=== PATIENT | male | born 1975 | race Caucasian/White ===

== ENCOUNTER 2020-11-28 13:56 | Emergency (ER) | payer OTHER ==
[~2020-11-28] VITALS: Ht 167.6 cm; Wt 72.6 kg
[~2020-11-28 13:56] MED LIST: ALPHA LIPOIC A300 MG PO; BENADRYL25 MG PO; DIPHENHYDRAMINE50 M1 PO; NEURONTIN400 MG PO; NEURONTIN600 MG PO; NEURONTIN800 MG PO; OMEPRAZOLE20 MG PO; PROPRANOLOL HCL20 MG PO; VISINE15 ML OPTH; [UNRECOGNIZED DRUG - OTHER] TOP
[2020-11-28] MEDS ORDERED: FAMOTIDINE20 MG PO (15:54)
[2020-11-28] MEDS ORDERED: LIPITOR20 MG GT (15:54)
[2020-11-28] MEDS ORDERED: LAMICTAL25 MG PO (15:54)
[2020-11-28] MEDS ORDERED: LAMOTRIGINE100 MG PO (15:55)
== END 2020-11-28 17:46 | disposition home or self-care (01) ==
LOC: ED 13:56
DX: M51.36 Other intervertebral disc degeneration, lumbar region (principal); Z87.891 Personal history of nicotine dependence; Z88.8 Allergy status to other drugs, medicaments and biological substances; Z79.899 Other long term (current) drug therapy
CPT/HCPCS: 72128; 72131; 99283-25; J7512